=== PATIENT | female | born 1990 | race Caucasian/White ===

== ENCOUNTER 2021-06-09 06:49 | Inpatient (IN) | payer OTHER ==
[2021-06-09] MEDS ORDERED: Sodium Chloride 0.9% 10 ML Syringe FLUSH PRN (07:08)
[2021-06-09] MEDS ORDERED: Ondansetron 4 MG/2 ML SDV IVPUSH PRN ×2 (07:08→07:59)
[2021-06-09] MEDS ORDERED: Nalbuphine 10 MG/1 ML Vial IVPUSH PRN (07:08)
--- NOTE | 2021-06-09 07:11 | PCM.LDHP ---
L&D History of Present Illness - General Date of Service: 06/09/21 Admit Problem/Dx: Patient Status Order with Admit Dx/Problem 06/09/21 07:08 Patient Status [ADT] Routine Admission Diagnosis/Problem Admission Diagnosis/Problem Normal in third trimester Source of Information: Patient History Limitations: Reports: No Limitations - History of Present Illness Introduction:: Patient is a 31 y/o at 39 6/7 wks who presents for elective IOL. Doing well. 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: : 1 Para: 0 LMP (Approximate): - Past Surgical History HEENT Surgical History: Reports: Oral Surgery (wisdom tooth extraction) Social & Family History - Tobacco Use Tobacco Use Status *Q: Never Tobacco User - Alcohol Use Alcohol Use History: No - Recreational Drug Use Recreational Drug Use: No H&P Review of Systems - Review of Systems: Review Of Systems: See Below General: Reports: No Symptoms Pulmonary: Reports: No Symptoms Cardiovascular: Reports: No Symptoms Gastrointestinal: Reports: No Symptoms Genitourinary: Reports: No Symptoms Musculoskeletal: Reports: No Symptoms Psychiatric: Reports: No Symptoms Neurological: Reports: No Symptoms L&D Exam - Exam Exam: See Below - Vital Signs Weight: 82.781 kg - OB Specific Contraction Intensity: Mild Movement: Active Heart Tones: Present Heart Tones per Min: 130 Heart Rate (FHR) Variability: Moderate (6-25 bpm) Presentation: Vertex - Johnson Score Johnosn Score Cervix Position: Midposition Johnson Score Consistency: Soft Johnson Score Effacement: >80% Johnson Score Dilation: 3-4 cm Johnson Score Infant's Station: -1 ,0 Johnson Score Total: 10 - Exam General: Alert, Oriented, Cooperative Lungs: Clear to Auscultation, Normal Respiratory Effort Cardiovascular: Regular Rate, Regular Rhythm GI/Abdominal Exam: Soft, Non-Tender Genitourinary: Normal external exam Extremities: Normal Inspection Skin: Warm, Dry, Intact - Patient Data Result Diagrams: 06/09/21 07:24 - Problem List (1) 39 weeks gestation of SNOMED Code(s): 65117839 ICD Code: Z3A.39 - 39 WEEKS GESTATION OF Status: Acute Current Visit: Yes Problem List Initiated/Reviewed/Updated: Yes Orders Last 24hrs: Active Orders 24 hr Category Date Time Status Patient Status [ADT] Routine ADT 06/09/21 07:08 Ordered Activity as Tolerated [RC] PFP Care 06/09/21 07:08 Ordered Communication Order [RC] ASDIRECTED Care 06/09/21 07:08 Ordered Heart Tones [RC] ASDIRECTED Care 06/09/21 07:09 Ordered Non Stress Test [RC] PER UNIT ROUTINE Care 06/09/21 07:08 Ordered Notify Provider [RC] PFP Care 06/09/21 07:08 Ordered Notify Provider [RC] PRN Care 06/09/21 07:08 Ordered Peripheral IV Care [RC] . DIRECTED Care 06/09/21 07:09 Ordered Vital Signs [RC] PER UNIT ROUTINE Care 06/09/21 07:08 Ordered Regular Diet [DIET] Diet 06/09/21 Breakfast Ordered CBC W/O DIFF,HEMOGRAM [HEME] Routine Lab 06/09/21 07:08 Ordered CORONAVIRUS COVID-19 TOBI [MOLEC] Stat Lab 06/09/21 07:10 Ordered HEP C VIRUS AB [REF] Routine Lab 06/09/21 07:08 Ordered RAPID PLASMA REAGIN,RPR [CHEM] Routine Lab 06/09/21 07:08 Ordered TYPE AND SCREEN [BBK] Routine Lab 06/09/21 07:08 Ordered Lactated Ringers [Ringers, Lactated] 1,000 ml Med 06/09/21 07:15 Ordered IV ASDIRECTED Nalbuphine [Nubain] Med 06/09/21 07:08 Ordered 10 mg IVPUSH Q2H PRN Ondansetron [Zofran] Med 06/09/21 07:08 Ordered 4 mg IVPUSH Q4H PRN Oxytocin/Lactated Ringers [Pitocin in LR 10 Units/1,000 Med 06/09/21 07:15 Ordered ML] 10 unit in 1,000 ml IV .CONTINUOUS Sodium Chloride 0.9% [Saline Flush] Med 06/09/21 07:08 Ordered 10 ml FLUSH ASDIRECTED PRN Electronic Heart Tones Ext w TOCO [WOMSER] Oth 06/09/21 07:08 Ordered Routine Electronic Heart Tones Internal [WOMSER] Per Unit Oth 06/09/21 07:08 Ordered Routine Peripheral IV Insertion Adult [OM.PC] Routine Oth 06/09/21 07:08 Ordered Resuscitation Status Routine Resus Stat 06/09/21 07:08 Ordered Assessment/Plan Comment:: * Labs * GBS negative * Pitocin for IOL. AROM when applicable * Pain management per patient preference * Anticipate
[2021-06-09] MEDS ORDERED: Lactated Ringers 1,000 ML IV SCH (07:15)
[2021-06-09] MEDS ORDERED: Oxytocin/Lactated Ringers 10 UNIT/1,000 ML BAG IV SCH ×2 (07:15→08:15)
[2021-06-09] MEDS ORDERED: ePHEDrine 50 MG/ML SDV IVPUSH PRN (07:59)
[2021-06-09] MEDS ORDERED: fentaNYL 100 MCG/2 ML SDV EPIDUR PRN (07:59)
[2021-06-09] MEDS ORDERED: Bupivacaine/fentaNYL/NS 100 ML Bag EPIDUR SCH (08:00)
--- NOTE | 2021-06-09 08:10 | PCM.PREANE ---
Preanesthetic Assessment - Procedure Proposed Procedure: Epidural - Anesthesia/Transfusion/Family Hx Anesthesia History: Prior Anesthesia Without Reaction Family History of Anesthesia Reaction: No Transfusion History: No Prior Transfusion(s) Intubation History: Unknown - Review of Systems General: No Symptoms Pulmonary: No Symptoms Cardiovascular: No Symptoms Gastrointestinal: No Symptoms Neurological: No Symptoms Other: Reports: None - Physical Assessment NPO Status Date: 06/09/21 NPO Status Time: 08:30 Vital Signs: HR: 105 Sat: 100% Temp: 99.1 Resp: 16 B/P: 112/84 Height: 1.73 m Weight: 82.781 kg ASA Class: 2 Mental Status: Alert & Oriented x3 Airway Class: Mallampati = 2 Dentition: Reports: Normal Dentition, Caries Thyro-Mental Finger Breadths: 3 Mouth Opening Finger Breadths: 3 ROM/Head Extension: Full Lungs: Clear to Auscultation, Normal Respiratory Effort Cardiovascular: Regular Rate, Regular Rhythm, No Murmurs - Lab Values: Laboratory Last Values WBC 8.28 K/mm3 (3.98-10.04) 06/09/21 07:24 RBC 4.41 M/mm3 (3.98-5.22) 06/09/21 07:24 Hgb 13.9 gm/dl (11.2-15.7) 06/09/21 07:24 Hct 41.0 % (34.1-44.9) 06/09/21 07:24 MCV 93.0 fl (79.4-94.8) 06/09/21 07:24 MCH 31.5 pg (25.6-32.2) 06/09/21 07:24 MCHC 33.9 g/dl (32.2-35.5) 06/09/21 07:24 RDW Std Deviation 45.3 fL (36.4-46.3) 06/09/21 07:24 Plt Count 168 K/mm3 (182-369) L 06/09/21 07:24 MPV 10.6 fl (9.4-12.3) 06/09/21 07:24 All labs reviewed and noted and within acceptable ranges to proceed with epidural if desired. 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: - Past Surgical History HEENT Surgical History: Reports: Oral Surgery (wisdom tooth extraction) - SUBSTANCE USE Tobacco Use Status *Q: Never Tobacco User Recreational Drug Use History: No - CURRENT (IN HOUSE) MEDS Current Meds: Current Medications Ephedrine Sulfate (Ephedrine 50 Mg/Ml Sdv) 5 mg IVPUSH ASDIRECTED PRN PRN Reason: Hypotension Fentanyl (Fentanyl 100 Mcg/2 Ml Sdv) 100 mcg EPIDUR Q3H PRN PRN Reason: Pain Fentanyl/Bupivacaine HCl (Bupivacaine/Fentanyl/Ns 100 Ml Bag) 100 ml EPIDUR ASDIRECTED JACOBY Oxytocin/Lactated Ringer's (Pitocin In Lr 10 Units/1,000 Ml) 10 unit in 1,000 mls @ 500 mls/hr IV .CONTINUOUS JACOBY Lactated Ringer's (Ringers, Lactated) 1,000 mls @ 100 mls/hr IV ASDIRECTED JACOBY Oxytocin/Lactated Ringer's (Pitocin In Lr 10 Units/1,000 Ml) 10 unit in 1,000 mls @ 12 mls/hr IV TITRATE JACOBY; Protocol Miscellaneous Medication (Phenylephrine Hcl In 0.9% Nacl 1 Mg/10 Ml Syringe) 0.1 mg IVPUSH Q10M PRN PRN Reason: Hypotension Nalbuphine HCl (Nalbuphine 10 Mg/1 Ml Vial) 10 mg IVPUSH Q2H PRN PRN Reason: Pain Ondansetron HCl (Ondansetron 4 Mg/2 Ml Sdv) 4 mg IVPUSH Q4H PRN PRN Reason: Nausea/Vomiting Ondansetron HCl (Ondansetron 4 Mg/2 Ml Sdv) 4 mg IVPUSH ONETIME PRN PRN Reason: Nausea/Vomiting Sodium Chloride (Sodium Chloride 0.9% 10 Ml Syringe) 10 ml FLUSH ASDIRECTED PRN PRN Reason: Keep Vein Open
[2021-06-09] MEDS ORDERED: Lidocaine 1% 50 ML MDV ONE (13:18)
--- NOTE | 2021-06-09 13:50 | PCM.DEL ---
L & D Note - General Info Date of Service: 06/09/21 - Delivery Note Labor: Augmented by Oxytocin, Induced by ARM Delivery Outcome: Livebirth Infant Delivery Method: Spontaneous Vaginal Delivery-Single Delivery Mode: Spontaneous Presentation: Left Occiput Anterior (ALTHEA) Nuchal Cord: None Anesthesia Type: None Amniotic Fluid Description: Clear Episiotomy Type: None Laceration: 2nd Degree, Perineal, Sulcus Suture type: Vicryl Suture size: 2-0 Placenta: Intact, Spontaneous Cord: 3 Vessels Estimated Blood Loss: 300 Resuscitation Needed: Yes Leroy: Bulb Syringe, Stimulated, Warmed, [place] Used, Warmer Used Delivery Comments (Free Text/Narrative):: Patient found to be complete and began pushing. With maternal pushing effort head delivered from ALTHEA presentation. No nuchal cord present. With gentle downward traction the shoulders and body delivered. Infant placed on maternal abdomen. Cord clamped and cut. Cord blood obtained. Placenta allowed time to separate and expelled intact. Inspection of perineum showed a deep 2nd degree tear. Perineal skin disrupted down towards rectum. Rectal exam confirmed no 3rd/4th degree tear. Capsule over rectal musculature reinforced with a interrupted 2-0 Vicryl . Remainder of perineal laceration repaired with a running 2-0 Vicryl in the typical fashion - General Info Date of Service: 06/09/21 - Patient Data Vitals - Most Recent: Last Vital Signs Temp 37.3 C 06/09/21 07:08 Pulse 105 H 06/09/21 07:08 Resp 16 06/09/21 07:08 BP 112/84 06/09/21 07:08 Pulse Ox 100 06/09/21 07:08 Weight - Most Recent: 82.781 kg I&O - Last 24 Hours: Intake & Output 06/08/21 06/09/21 06/09/21 22:59 06:59 14:59 Intake Total 0 Balance 0 - Problem List & Annotations (1) 39 weeks gestation of SNOMED Code(s): 88451388 Code(s): Z3A.39 - 39 WEEKS GESTATION OF Status: Acute Current Visit: Yes (2) Vaginal delivery SNOMED Code(s): 001583181 Code(s): O80 - ENCOUNTER FOR FULL-TERM UNCOMPLICATED DELIVERY Status: Acute Current Visit: Yes - Problem List Review Problem List Initiated/Reviewed/Updated: Yes - My Orders Last 24 Hours: My Active Orders 06/09/21 Breakfast Regular Diet [DIET] 06/09/21 07:08 Patient Status [ADT] Routine Activity as Tolerated [RC] PFP Communication Order [RC] ASDIRECTED Non Stress Test [RC] PER UNIT ROUTINE Notify Provider [RC] PFP Notify Provider [RC] PRN Vital Signs [RC] PER UNIT ROUTINE Nalbuphine [Nubain] 10 mg IVPUSH Q2H PRN Ondansetron [Zofran] 4 mg IVPUSH Q4H PRN Sodium Chloride 0.9% [Saline Flush] 10 ml FLUSH ASDIRECTED PRN Electronic Heart Tones Ext w TOCO [WOMSER] Routine Electronic Heart Tones Internal [WOMSER] Per Unit Routine Peripheral IV Insertion Adult [OM.PC] Routine Resuscitation Status Routine 06/09/21 07:09 Heart Tones [RC] ASDIRECTED Peripheral IV Care [RC] . DIRECTED 06/09/21 07:15 Lactated Ringers [Ringers, Lactated] 1,000 ml IV ASDIRECTED Oxytocin/Lactated Ringers [Pitocin in LR 10 Units/1,000 ML] 10 unit in 1,000 ml IV .CONTINUOUS 06/09/21 07:24 HEP C VIRUS AB [REF] Routine RAPID PLASMA REAGIN,RPR [CHEM] Routine 06/09/21 08:15 Oxytocin/Lactated Ringers [Pitocin in LR 10 Units/1,000 ML] 10 unit in 1,000 ml IV TITRATE 06/09/21 08:33 PATIENT RETYPE [BBK] Routine - Assessment Assessment:: PPD#0 - Plan Plan:: * Routine cares * Breast feeding * Discharge home in 1-2 days
[2021-06-09] MEDS ORDERED: Docusate Sodium 100 MG Cap PO PRN (14:05)
[2021-06-09] MEDS ORDERED: Acetaminophen 325 MG Tab PO PRN (14:05)
[2021-06-09] MEDS ORDERED: Witch Hazel Medicated Pads 40/Jar TOP PRN (14:05)
[2021-06-09] MEDS ORDERED: Sennosides 8.6 MG Tab PO PRN (14:05)
[2021-06-09] MEDS ORDERED: Benzocaine/Menthol 20%-0.5% Spray 78 GM Cannister TOP PRN (14:05)
[2021-06-09] MEDS: Ibuprofen 600 MG Tab PO PRN (16:18)
[2021-06-10] MEDS: Ibuprofen 600 MG Tab PO PRN ×2 (00:41→06:51)
--- NOTE | 2021-06-10 03:44 | PCM.PNPP ---
- General Info Date of Service: 06/10/21 Functional Status: Reports: Pain Controlled, Tolerating Diet, Ambulating, Urinating - Review of Systems General: Reports: No Symptoms Pulmonary: Reports: No Symptoms Cardiovascular: Reports: No Symptoms Gastrointestinal: Reports: No Symptoms Genitourinary: Reports: No Symptoms Musculoskeletal: Reports: No Symptoms - General Info Date of Service: 06/10/21 - Patient Data Vital Signs - Most Recent: Last Vital Signs Temp 37.3 C 06/09/21 07:08 Pulse 105 H 06/09/21 07:08 Resp 16 06/09/21 07:08 BP 112/84 06/09/21 07:08 Pulse Ox 100 06/09/21 07:08 Weight - Most Recent: 82.781 kg I&O - Last 24 Hours: Intake & Output 06/09/21 06/09/21 06/10/21 14:59 22:59 06:59 Intake Total 0 2000 Output Total 137 Balance 0 1863 Lab Results - Last 24 Hours: Laboratory Results - last 24 hr 06/09/21 06/09/21 06/09/21 Range/Units 07:24 07:24 07:31 WBC 8.28 (3.98-10.04) K/mm3 RBC 4.41 (3.98-5.22) M/mm3 Hgb 13.9 (11.2-15.7) gm/dl Hct 41.0 (34.1-44.9) % MCV 93.0 (79.4-94.8) fl MCH 31.5 (25.6-32.2) pg MCHC 33.9 (32.2-35.5) g/dl RDW Std Deviation 45.3 (36.4-46.3) fL Plt Count 168 L (182-369) K/mm3 MPV 10.6 (9.4-12.3) fl SARS-CoV-2 RNA (TOBI) Negative (NEGATIVE) Blood Type A POSITIVE Gel Antibody Screen Negative Med Orders - Current: Current Medications Acetaminophen (Acetaminophen 325 Mg Tab) 650 mg PO Q4H PRN PRN Reason: mild pain or fever Benzocaine/Menthol (Benzocaine/Menthol 20%-0.5% [place] 78 Gm Cannister) 0 gm TOP ASDIRECTED PRN PRN Reason: Perineal Comfort Measure Last Admin: 06/09/21 15:18 Dose: 1 spray Documented by: Docusate Sodium (Docusate Sodium 100 Mg Cap) 100 mg PO BID PRN PRN Reason: Constipation Last Admin: 06/09/21 15:18 Dose: 100 mg Documented by: Ibuprofen (Ibuprofen 600 Mg Tab) 600 mg PO Q6H PRN PRN Reason: Mild pain or fever Last Admin: 06/10/21 00:41 Dose: 600 mg Documented by: Senna (Sennosides 8.6 Mg Tab) 8.6 mg PO BEDTIME PRN PRN Reason: Constipation Witch Zenaida (Witch Zenaida Medicated Pads 40/Jar) 1 pad TOP ASDIRECTED PRN PRN Reason: Perineal Comfort Measure Last Admin: 06/09/21 15:18 Dose: 1 pad Documented by: Discontinued Medications Ephedrine Sulfate (Ephedrine 50 Mg/Ml Sdv) 5 mg IVPUSH ASDIRECTED PRN PRN Reason: Hypotension Fentanyl (Fentanyl 100 Mcg/2 Ml Sdv) 100 mcg EPIDUR Q3H PRN PRN Reason: Pain Fentanyl/Bupivacaine HCl (Bupivacaine/Fentanyl/Ns 100 Ml Bag) 100 ml EPIDUR ASDIRECTED JACOBY Oxytocin/Lactated Ringer's (Pitocin In Lr 10 Units/1,000 Ml) 10 unit in 1,000 mls @ 500 mls/hr IV .CONTINUOUS JACOBY Lactated Ringer's (Ringers, Lactated) 1,000 mls @ 100 mls/hr IV ASDIRECTED JACOBY Last Admin: 06/09/21 08:05 Dose: 100 mls/hr Documented by: Oxytocin/Lactated Ringer's (Pitocin In Lr 10 Units/1,000 Ml) 10 unit in 1,000 mls @ 12 mls/hr IV TITRATE JACOBY; Protocol Last Titration: 06/09/21 13:01 Dose: 0 munits/min, 0 mls/hr Documented by: Lidocaine HCl (Lidocaine 1% 50 Ml Mdv) Confirm Administered Dose [address] Stop: 06/09/21 13:19 Miscellaneous Medication (Phenylephrine Hcl In 0.9% Nacl 1 Mg/10 Ml Syringe) 0.1 mg IVPUSH Q10M PRN PRN Reason: Hypotension Nalbuphine HCl (Nalbuphine 10 Mg/1 Ml Vial) 10 mg IVPUSH Q2H PRN PRN Reason: Pain Ondansetron HCl (Ondansetron 4 Mg/2 Ml Sdv) 4 mg IVPUSH Q4H PRN PRN Reason: Nausea/Vomiting Ondansetron HCl (Ondansetron 4 Mg/2 Ml Sdv) 4 mg IVPUSH ONETIME PRN PRN Reason: Nausea/Vomiting Sodium Chloride (Sodium Chloride 0.9% 10 Ml Syringe) 10 ml FLUSH ASDIRECTED PRN PRN Reason: Keep Vein Open - Interaction Infant Disposition, : in Room with Family Infant Interaction: Holding Feeding: Breastfed Infant; Nursed Well Support Person: - Recovery Exam Fundal Tone: Firm Fundal Placement: Midline Lochia Amount: Small Episiotomy/Laceration: Approximated Bladder Status: Voiding Urinary Elimination: Voided - Exam General: Alert, Oriented, Cooperative GI/Abdominal Exam: Soft, Non-Tender - Problem List & Annotations (1) 39 weeks gestation of SNOMED Code(s): 00547290 Code(s): Z3A.39 - 39 WEEKS GESTATION OF Status: Acute Current Visit: Yes (2) Vaginal delivery SNOMED Code(s): 996975172 Code(s): O80 - ENCOUNTER FOR FULL-TERM UNCOMPLICATED DELIVERY Status: Acute Current Visit: Yes - Problem List Review Problem List Initiated/Reviewed/Updated: Yes - My Orders Last 24 Hours: My Active Orders 06/09/21 07:08 Resuscitation Status Routine 06/09/21 07:24 HEP C VIRUS AB [REF] Routine RAPID PLASMA REAGIN,RPR [CHEM] Routine 06/09/21 14:05 Acetaminophen [TylenoL] 650 mg PO Q4H PRN Benzocaine/Menthol [Dermoplast Pain Relief 20%-0.5% [place]] See Dose Instructions TOP ASDIRECTED PRN Docusate Sodium [Colace] 100 mg PO BID PRN Ibuprofen [Motrin] 600 mg PO Q6H PRN Sennosides [Senna] 8.6 mg PO BEDTIME PRN witch Zenaida [Tucks] 1 pad TOP ASDIRECTED PRN Heat Therapy [OM.PC] PRN 06/09/21 14:05 Activity as Tolerated [RC] PER UNIT ROUTINE Vital Signs [RC] ASDIRECTED Assess Lochia [WOMSER] Per Unit Routine Assess Uterine Involution [WOMSER] Per Unit Routine Breast Pump [WOMSER] Per Unit Routine Ice Therapy [OM.PC] Per Unit Routine Perineal Care [OM.PC] Per Unit Routine Peripheral IV Discontinue [OM.PC] Routine Sitz Bath [OM.PC] Per Unit Routine 06/09/21 Dinner Regular Diet [DIET] 06/10/21 03:44 Ready for Discharge [RC] PER UNIT ROUTINE 06/10/21 14:05 Heat Therapy [OM.PC] PRN - Assessment Assessment:: PPD#1 - Plan Plan:: * Routine cares * Breast feeding * Discharge home today
--- NOTE | 2021-06-10 03:45 | PCM.DCSUM1 ---
Discharge Summary - Discharge Data Discharge Date: 06/10/21 Discharge Disposition: Home, Self-Care 01 Condition: Good - Referral to Home Health Primary Care Physician: Kendra Hester MD - Discharge Diagnosis/Problem(s) (1) 39 weeks gestation of SNOMED Code(s): 32185365 ICD Code: Z3A.39 - 39 WEEKS GESTATION OF Status: Acute Current Visit: Yes (2) Vaginal delivery SNOMED Code(s): 586517972 ICD Code: O80 - ENCOUNTER FOR FULL-TERM UNCOMPLICATED DELIVERY Status: Acute Current Visit: Yes - Patient Summary/Data Complications: None Consults: None Recommended Follow-up Testing/Procedures: Follow up in 3 weeks for check Hospital Course: 31 y/o at 39 6/7 wks who presented for IOL. Done with pitocin and AROM. Progressed well to complete dilation. Underwent an uncomplicated . See delivery note. did well and was discharged home on PPD#1 - Patient Instructions Diet: Regular Diet as Tolerated Activity: As Tolerated Activity, Other: Pelvic rest for 6 weeks Driving: May Drive Today Showering/Bathing: May Shower Showering/Bathing, Other: May Bathe Notify Provider of: Fever, Increased Pain, Swelling and Redness, Drainage, Nausea and/or Vomiting - Discharge Plan *PRESCRIPTION DRUG MONITORING PROGRAM REVIEWED*: No *COPY OF PRESCRIPTION DRUG MONITORING REPORT IN PATIENT INGRIS: No Home Medications: Home Meds Docusate Sodium [Colace] 100 mg PO BID PRN cap 06/10/21 [Rx] Ibuprofen [Motrin] 600 mg PO Q6H PRN tablet 06/10/21 [Rx] witch Lia [Tucks] 1 pad TOP ASDIRECTED PRN pad 06/10/21 [Rx] Patient Handouts: and Breast Care, Tips for a Good Latch, [id number], Care After Vaginal Delivery Referrals: Kendra Hester MD [Primary Care Provider] - (3 weeks for check ) - Discharge Summary/Plan Comment DC Time >30 min.: No Total # of Minutes for Discharge Time: 15 - Patient Data Vitals - Most Recent: Last Vital Signs Temp 37.3 C 06/09/21 07:08 Pulse 105 H 06/09/21 07:08 Resp 16 06/09/21 07:08 BP 112/84 06/09/21 07:08 Pulse Ox 100 06/09/21 07:08 Weight - Most Recent: 82.781 kg I&O - Last 24 hours: Intake & Output 06/09/21 06/09/21 06/10/21 14:59 22:59 06:59 Intake Total 0 1999 Output Total 137 Balance 0 1863 Lab Results - Last 24 hrs: Laboratory Results - last 24 hr 06/09/21 06/09/21 06/09/21 Range/Units 07:24 07:24 07:31 WBC 8.28 (3.98-10.04) K/mm3 RBC 4.41 (3.98-5.22) M/mm3 Hgb 13.9 (11.2-15.7) gm/dl Hct 41.0 (34.1-44.9) % MCV 93.0 (79.4-94.8) fl MCH 31.5 (25.6-32.2) pg MCHC 33.9 (32.2-35.5) g/dl RDW Std Deviation 45.3 (36.4-46.3) fL Plt Count 168 L (182-369) K/mm3 MPV 10.6 (9.4-12.3) fl SARS-CoV-2 RNA (TOBI) Negative (NEGATIVE) Blood Type A POSITIVE Gel Antibody Screen Negative Med Orders - Current: Current Medications Acetaminophen (Acetaminophen 325 Mg Tab) 650 mg PO Q4H PRN PRN Reason: mild pain or fever Benzocaine/Menthol (Benzocaine/Menthol 20%-0.5% [place] 78 Gm Cannister) 0 gm TOP ASDIRECTED PRN PRN Reason: Perineal Comfort Measure Last Admin: 06/09/21 15:18 Dose: 1 spray Documented by: Docusate Sodium (Docusate Sodium 100 Mg Cap) 100 mg PO BID PRN PRN Reason: Constipation Last Admin: 06/09/21 15:18 Dose: 100 mg Documented by: Ibuprofen (Ibuprofen 600 Mg Tab) 600 mg PO Q6H PRN PRN Reason: Mild pain or fever Last Admin: 06/10/21 00:41 Dose: 600 mg Documented by: Senna (Sennosides 8.6 Mg Tab) 8.6 mg PO BEDTIME PRN PRN Reason: Constipation Witch Lia (Witch Lia Medicated Pads 40/Jar) 1 pad TOP ASDIRECTED PRN PRN Reason: Perineal Comfort Measure Last Admin: 06/09/21 15:18 Dose: 1 pad Documented by: Discontinued Medications Ephedrine Sulfate (Ephedrine 50 Mg/Ml Sdv) 5 mg IVPUSH ASDIRECTED PRN PRN Reason: Hypotension Fentanyl (Fentanyl 100 Mcg/2 Ml Sdv) 100 mcg EPIDUR Q3H PRN PRN Reason: Pain Fentanyl/Bupivacaine HCl (Bupivacaine/Fentanyl/Ns 100 Ml Bag) 100 ml EPIDUR ASDIRECTED JACOBY Oxytocin/Lactated Ringer's (Pitocin In Lr 10 Units/1,000 Ml) 10 unit in 1,000 mls @ 500 mls/hr IV .CONTINUOUS JACOBY Lactated Ringer's (Ringers, Lactated) 1,000 mls @ 100 mls/hr IV ASDIRECTED JACOBY Last Admin: 06/09/21 08:05 Dose: 100 mls/hr Documented by: Oxytocin/Lactated Ringer's (Pitocin In Lr 10 Units/1,000 Ml) 10 unit in 1,000 mls @ 12 mls/hr IV TITRATE JACOBY; Protocol Last Titration: 06/09/21 13:01 Dose: 0 munits/min, 0 mls/hr Documented by: Lidocaine HCl (Lidocaine 1% 50 Ml Mdv) Confirm Administered Dose 50 ml .ROUTE .[facility] ONE Stop: 06/09/21 13:19 Miscellaneous Medication (Phenylephrine Hcl In 0.9% Nacl 1 Mg/10 Ml Syringe) 0.1 mg IVPUSH Q10M PRN PRN Reason: Hypotension Nalbuphine HCl (Nalbuphine 10 Mg/1 Ml Vial) 10 mg IVPUSH Q2H PRN PRN Reason: Pain Ondansetron HCl (Ondansetron 4 Mg/2 Ml Sdv) 4 mg IVPUSH Q4H PRN PRN Reason: Nausea/Vomiting Ondansetron HCl (Ondansetron 4 Mg/2 Ml Sdv) 4 mg IVPUSH ONETIME PRN PRN Reason: Nausea/Vomiting Sodium Chloride (Sodium Chloride 0.9% 10 Ml Syringe) 10 ml FLUSH ASDIRECTED PRN PRN Reason: Keep Vein Open
[2021-06-10] MEDS ORDERED: Measles, Mumps & Rubella Vaccine 0.5 ML SDV SUBCUT ONE (12:03)
== END 2021-06-10 13:54 | disposition home or self-care (01) | DRG 807 ==
LOC: JD.OB 06:49 → OBSVTOIN 13:16 → JD.OB 13:17
PROVIDERS: ADMIT Obstetrics & Gynecology; ATTEND Obstetrics & Gynecology
PROC: 10E0XZZ Delivery of Products of Conception, External Approach (ICD-10-PCS; principal; 2021-06-09)
PROC: 0KQM0ZZ Repair Perineum Muscle, Open Approach (ICD-10-PCS; 2021-06-09)
PROC: 10907ZC Drainage of Amniotic Fluid, Therapeutic from Products of Conception, Via Natural or Artificial Opening (ICD-10-PCS; 2021-06-09)
PROC: 3E0234Z Introduction of Serum, Toxoid and Vaccine into Muscle, Percutaneous Approach (ICD-10-PCS; 2021-06-10)
DX: O70.1 Second degree perineal laceration during delivery (principal); Z37.0 Single live birth; Z3A.39 39 weeks gestation of pregnancy; Z20.822 Contact with and (suspected) exposure to COVID-19; Z23 Encounter for immunization
CPT/HCPCS: 36415; 59025; 59409; 85027; 86592; 86803; 86850; 86900; 86901; 90471; 90707; A9270-GY; J2590; J7120; U0002